=== PATIENT | female | born 1995 | race Caucasian/White ===

== ENCOUNTER 2016-06-03 00:33 | Emergency (ER) | payer OTHER ==
[~2016-06-03] VITALS: Ht 157.5 cm; Wt 70.2 kg
[2016-06-03 00:35] VITALS: TEMP 36.8; Ht 157.5 cm; Wt 70.2 kg
[2016-06-03] MEDS ORDERED: ONDANSETRON 8 MG/54 ML D5W IV STA (00:43)
[2016-06-03] MEDS ORDERED: PROMETHAZINE HCL INJ 25 MG/ML 1 ML VIAL IV STA (00:43)
[2016-06-03] MEDS ORDERED: KETOROLAC TROMETHAMINE 30 MG/ML VIAL IV STA (00:43)
[2016-06-03] MEDS ORDERED: SODIUM CHLORIDE 0.9% 1000ML 1,000 ML IV STA ×2 (00:43)
--- NOTE | 2016-06-03 00:49 | EMERGENCY ROOM VISIT NOTE ---
History Report prepared by Tessa: Oscar Brown Under the Supervision of: Dr. Peter Francis M.D. First contact with patient: 00:39 Chief Complaint: VOMITING Stated Complaint: VOMITED 5 TIMES SINCE 2229,CAN'T KEEP MUCH DOWN History of Present Illness The patient is a 21 year old female who presents to the Emergency Room with complaints of persistent vomiting since 2229 tonight. The patient had five episodes of vomiting so far. She started to experience abdominal cramping around 1600 today. She has also had some diarrhea and chills. She denies any fevers, urinary symptoms, or abnormal vaginal discharge. The patient has a history of appendectomy. The patient does not have any sick contacts, although her daughter was spitting up phlegm. The patient denies any medical problems. She does not currently take any daily medications. She does not believe that she is . Source of History: patient Onset: 2229 Position: other (GI) Quality: other (vomiting) Timing: other (persistent) Associated Symptoms: + abdominal pain, + chills, + diarrhea, + nausea, No fevers, No urinary symptoms Review of Systems See HPI for pertinent positives & negatives. A total of 10 systems reviewed and were otherwise negative. Past Medical & Surgical Surgical Problems: (1) History of appendectomy Family History No pertinent family history Social History Smoking Status: Never Smoker Occupation Status: [employer] student Current/Historical Medications Scheduled Ondasetron Odt (Zofran Odt), 4-8 MG SL Q6H Allergies Coded Allergies: Estrogens (Unverified Allergy, Unknown, swelling, 06/03/16) Physical Exam Vital Signs Date Time Temp Pulse Resp B/P Pulse Ox O2 Delivery O2 Flow Rate FiO2 06/03/16 00:35 36.8 106 16 117/70 97 Room Air Physical Exam GENERAL: Patient is in no acute distress. HEENT: No acute trauma, normocephalic atraumatic, mucous membranes moist, no nasal congestion, no scleral icterus. NECK: No stridor, no adenopathy, no meningismus, trachea is midline. LUNGS: Clear to auscultation bilaterally, no wheeze, no rhonchi, breath sounds equal. HEART: Without murmurs gallops or rubs, regular rate and rhythm. ABDOMEN: Soft, nontender, bowel sounds positive, no hernias, no peritonitis. EXTREMITIES: No cyanosis or edema, full range of motion of all the joints without pain or difficulty, no signs for acute trauma. NEUROLOGIC: Oriented x 3, no acute motor or sensory deficits, no focal weakness. SKIN: No rash, no jaundice, no diaphoresis. Medical Decision & Procedures Laboratory Results 06/03/16 01:00 06/03/16 01:00 Test 06/03/16 01:00 Red Blood Count 4.92 M/uL (4.2-5.4) Mean Corpuscular Volume 85.0 fL (80-100) Mean Corpuscular Hemoglobin 29.3 pg (25-34) Mean Corpuscular Hemoglobin Concent 34.4 g/dl (32-36) RDW Standard Deviation 39.0 fL (36.4-46.3) RDW Coefficient of Variation 12.6 % (11.5-14.5) Mean Platelet Volume 10.1 fL (7.4-10.4) Anion Gap 9.0 mmol/L (3-11) Est Creatinine Clear Calc Drug Dose 140.8 ml/min Estimated GFR () > 150.0 Estimated GFR (Non- 131.8 BUN/Creatinine Ratio 21.6 (10-20) Calcium Level 8.8 mg/dl (8.5-10.1) Human Chorionic Gonadotropin, Qual NEG (NEG) Laboratory results reviewed by me. Medications Administered Medications (Trade) Dose Ordered Sig/Radha Route Start Time Stop Time Status Last Admin Dose Admin Ondansetron HCl (Zofran 8mg Iv) 8 mg NOW STAT IV 06/03/16 00:43 06/03/16 00:46 DC 06/03/16 01:13 8 MG Ketorolac Tromethamine 30 mg 30 mg NOW STAT IV 06/03/16 00:43 06/03/16 00:46 DC 06/03/16 01:12 30 MG Sodium Chloride 1,000 ml @ 999 mls/hr Q1H1M STAT IV 06/03/16 00:43 06/03/16 01:43 DC 06/03/16 01:12 999 MLS/HR Promethazine HCl/ Sodium Chloride (Phenergan Inj/ Nss 50ml) 50.25 ml @ 202 mls/hr ONE STAT IV 06/03/16 01:09 06/03/16 01:23 DC 06/03/16 01:26 202 MLS/HR ED Course 0039: The patient was evaluated in room A2. A complete history and physical exam was performed. 0043: NSS 1000 ml @ 200 mls/hr, NSS 1000 ml @ 999 mls/hr, Toradol 30 mg IV, Zofran 8 mg IV.' 0109: Promethazine HCl 6.25 mg / NSS 50.25 ml @ 202 mls/hr. 0144: Reevaluated the patient. She is feeling better. Discussed results and discharge instructions: She verbalized understanding and agreement. The patient is ready for discharge. 0146: Zofran Odt 4 mg PO home pack. Medical Decision Differential diagnosis includes dehydration, electrolyte imbalance, anemia, , viral illness food-borne illness. There is a moderate leukocytosis which could be consistent with infection or her vomiting. No concerning anemia. No significant electrolyte abnormality or kidney failure. testing is negative. On exam, the patient was not toxic or febrile. There was no peritonitis. The patient presents with nausea vomiting and diarrhea. I suspect her illness is viral. She was given IV Zofran, IV Phenergan, IV Toradol and IV saline, she is feeling improved. The patient is being discharged with Zofran for nausea, a bland diet, Tylenol for pain, rest and hydration. If worsening, she can return. Impression Primary Impression: Nausea, vomiting, and diarrhea Scribe Attestation The scribe's documentation has been prepared under my direction and personally reviewed by me in its entirety. I confirm that the note above accurately reflects all work, treatment, procedures, and medical decision making performed by me. Departure Information Dispostion Home / Self-Care Prescriptions Ondasetron Odt (ZOFRAN ODT) 4 Mg Tab 4-8 MG SL Q6H for Nausea, #10 TAB Prov: Peter Francis M.D. 06/03/16 Referrals No Doctor, Assigned (PCP) Forms HOME CARE DOCUMENTATION FORM, IMPORTANT VISIT INFORMATION, School Instructions Patient Instructions A Signature Page, [facility] [employer] Additional Instructions zofran 1-2 tab every 6 hours for nausea fluids rest tylenol for pain bland diet---crackers, soup, toast, gatorade return for worsening symptoms
[2016-06-03] MEDS ORDERED: PROMETHAZINE HCL INJ 6.25 MG in SODIUM CHLORIDE 0.9% 50ML 50 ML IV STA (01:09)
[2016-06-03 01:11] LABS: HEMATOCRIT 41.8 % (37-47); MEAN CORPUSCULAR HEMOGLOBIN 29.3 pg (25-34); MEAN CORPUSCULAR HGB CONC 34.4 g/dl (32-36); MEAN PLATELET VOLUME 10.1 fL (7.4-10.4); PLATELET COUNT 234 K/uL (130-400); RED BLOOD COUNT 4.92 M/uL (4.2-5.4); WHITE BLOOD COUNT 16.14 K/uL (4.8-10.8)
[2016-06-03 01:29] LABS: BLOOD UREA NITROGEN 13 mg/dl (7-18); BUN/CREATININE RATIO 21.6 (10-20); CALCIUM 8.8 mg/dl (8.5-10.1); CARBON DIOXIDE 28 mmol/L (21-32); CHLORIDE 106 mmol/L (98-107); CREATININE 0.58 mg/dl (0.60-1.20); GLUCOSE 102 mg/dl (70-99); POTASSIUM 3.6 mmol/L (3.5-5.1); SODIUM 143 mmol/L (136-145)
[2016-06-03 01:41] LABS: PREG INTERNAL NEGATIVE QC NEG CLEAR BACKGROUND; PREG INTERNAL POSITIVE QC POS CONTROL LINE
[2016-06-03] MEDS ORDERED: ONDA4TAB10 SL (01:41)
[2016-06-03] MEDS ORDERED: ONDANSETRON HOME PACK 4MG OD TAB PO ONE (02:00)
[2016-06-03 02:09] VITALS: BP 109/64; PULSE 74; O2SAT 98
== END 2016-06-03 02:12 | disposition home or self-care (01) ==
LOC: C.EDB 00:35 → C.EDA 02:12
DX: R11.2 Nausea with vomiting, unspecified (principal); R19.7 Diarrhea, unspecified

== ENCOUNTER → 2016-10-10 | Outpatient (CLI) | payer OTHER ==
[~2016-10-10] MED LIST: ONDA4TAB10 SL
[2016-10-10 17:46] LABS: HEMATOCRIT 39.2 % (37-47); MEAN CELL VOLUME 88.1 fL (80-100); MEAN CORPUSCULAR HEMOGLOBIN 30.1 pg (25-34); MEAN CORPUSCULAR HGB CONC 34.2 g/dl (32-36); MEAN PLATELET VOLUME 10.2 fL (7.4-10.4); PLATELET COUNT 315 K/uL (130-400); RED BLOOD COUNT 4.45 M/uL (4.2-5.4); WHITE BLOOD COUNT 7.11 K/uL (4.8-10.8)
[2016-10-10 17:56] LABS: BLOOD UREA NITROGEN 10 mg/dl (7-18); BUN/CREATININE RATIO 12.2 (10-20); CALCIUM 8.8 mg/dl (8.5-10.1); CARBON DIOXIDE 30 mmol/L (21-32); CHLORIDE 107 mmol/L (98-107); CREATININE 0.79 mg/dl (0.60-1.20); GLUCOSE 90 mg/dl (70-99); POTASSIUM 3.8 mmol/L (3.5-5.1); SODIUM 141 mmol/L (136-145)
[2016-10-10 18:06] LABS: THYROID STIMULATING HORMONE 0.968 uIu/ml (0.300-4.500)
== END | disposition home or self-care (01) ==
LOC: C.LABBC 14:46
PROVIDERS: ATTEND Family Medicine
DX: R53.83 Other fatigue (principal)

== ENCOUNTER → 2017-09-30 | Outpatient (CLI) | payer OTHER | END | disposition home or self-care (01) | LOC: C.LABBC 13:53 | PROVIDERS: ATTEND Nurse Practitioner Adult Health | DX: Z11.9 Encounter for screening for infectious and parasitic diseases, unspecified (principal) ==